=== PATIENT | female | born 1970 | race African-American/Black ===

== ENCOUNTER 2023-03-14 09:53 | Emergency (ER) | payer MEDICAID, OTHER ==
[~2023-03-14] VITALS: Ht 167.6 cm; Wt 82.2 kg
[2023-03-14 10:22] LABS: Basophils # (auto) 0 10 ^3/uL (0-0.2); Basophils % (auto) 0.7 % (0.0-2.0); Eosinophils # (auto) 0.3 10 ^3/uL (0-0.8); Eosinophils % (auto) 5.8 % (0.0-7.0); Hematocrit 38.9 % (36.0-46.0); Hemoglobin 12.9 g/dL (12.2-16.2); Lymphocytes # (auto) 1.8 10 ^3/uL (0.4-5.4); Lymphocytes % (auto) 32.2 % (10.0-50.0); Mean Corpuscular Hemoglobin 27.9 pg (28.0-32.0); Mean Corpuscular Hgb Conc. 33.3 g/dL (32.0-36.0); Mean Corpuscular Volume 83.9 fL (80.0-100.0); Monocytes # (auto) 0.6 10 ^3/uL (0-1.3); Monocytes % (auto) 10.6 % (0.0-12.0); Neutrophils # (auto) 2.9 10 ^3/uL (1.6-8.6); Neutrophils % (auto) 50.7 % (37.0-80.0); Red Blood Cells 4.64 10^6/uL (4.0-5.20); Red Cell Distribution Width 14.1 % (11.8-14.3); White Blood Cell 5.7 10^3/uL (4.4-10.8)
[2023-03-14 10:49] LABS: Alanine Aminotransferase 14 U/L (7-40); Alkaline Phosphatase 92 U/L (46-116); Anion Gap 4 (5-15); Aspartate Aminotransferase 11 U/L (13-40); BUN/Creatinine Ratio 18.8 (10.0-20.0); Blood Urea Nitrogen 15 mg/dL (9-23); Calcium 9.4 mg/dL (8.7-10.4); Carbon Dioxide 28 mmol/L (20-30); Chloride 108 mmol/L (98-107); Glucose 100 mg/dL (74-106); Potassium 4.2 mmol/L (3.5-5.1); Sodium 140 mmol/L (136-145)
[2023-03-14 10:50] LABS: Bilirubin, Total 0.3 mg/dL (0.2-1.0)
[2023-03-14 10:55] LABS: Albumin 4.3 g/dL (3.2-4.8)
[2023-03-14 12:26] VITALS: BP 140/65; TEMP 96.2
[2023-03-14 12:27] VITALS: PULSE 60; RESP 18; O2SAT 98
[2023-03-14 12:38] LABS: Urine Bacteria FEW /hpf (None Seen); Urine Blood Negative /uL (Negative); Urine Clarity Clear (Clear); Urine Color Colorless (Yellow); Urine Protein, UAD Negative (Negative); Urine Specific Gravity 1.015 (1.001-1.035); Urine Urobilinogen Normal (Negative); Urine WBC 1 /hpf (0 - 5); Urine pH 5.5 (5.0-8.0)
== END 2023-03-14 12:30 | disposition home or self-care (01) ==
LOC: ER 09:53
DX: G45.9 Transient cerebral ischemic attack, unspecified (principal); R42 Dizziness and giddiness; F12.10 Cannabis abuse, uncomplicated
CPT/HCPCS: 36415; 70450; 80053; 81001; 85025

== ENCOUNTER 2024-03-30 05:08 | Emergency (ER) | payer MEDICAID ==
[~2024-03-30] VITALS: Ht 167.6 cm; Wt 83.2 kg
[2024-03-30] MEDS ORDERED: HYDR-4902 PO (06:03)
[2024-03-30] MEDS ORDERED: ZOFR4T PO (06:03)
[2024-03-30] MEDS: ONDANSETRON HCL 4 MG/2 ML VIAL IM ONE (06:17)
[2024-03-30] MEDS: fentaNYL CITRATE 100 MCG/2 ML VL IM ONE (06:19)
[2024-03-30 06:20] VITALS: BP 158/82; PULSE 62; PULSE 68; RESP 16; TEMP 97.8; O2SAT 100
== END 2024-03-30 06:35 | disposition home or self-care (01) ==
LOC: ER 05:08
DX: R51.9 Headache, unspecified (principal); I10 Essential (primary) hypertension; F43.9 Reaction to severe stress, unspecified; F12.10 Cannabis abuse, uncomplicated; M19.90 Unspecified osteoarthritis, unspecified site; Z86.73 Personal history of transient ischemic attack (TIA), and cerebral infarction without residual deficits; Z90.49 Acquired absence of other specified parts of digestive tract
CPT/HCPCS: 96372; 99284; J2405; J3010

== ENCOUNTER 2024-04-01 12:07 | Emergency (ER) | payer MEDICAID ==
[~2024-04-01] VITALS: Ht 167.6 cm; Wt 91.0 kg
[~2024-04-01 12:07] MED LIST: HYDR-4902 PO; ZOFR4T PO
[2024-04-01] MEDS: HYDROcodone-ACET 5/325MG TAB PO ONE (14:48)
[2024-04-01] MEDS: ONDANSETRON ODT 4 MG TAB PO ONE (14:48)
[2024-04-01 15:11] VITALS: PULSE 84; RESP 16; O2SAT 98
[2024-04-01 15:20] LABS: Basophils # (auto) 0 10 ^3/uL (0-0.2); Basophils % (auto) 0.5 % (0.0-2.0); Eosinophils # (auto) 0.2 10 ^3/uL (0-0.8); Eosinophils % (auto) 2.9 % (0.0-7.0); Hematocrit 42.5 % (36.0-46.0); Hemoglobin 14.2 g/dL (12.2-16.2); Mean Corpuscular Hemoglobin 28.1 pg (28.0-32.0); Mean Corpuscular Hgb Conc. 33.3 g/dL (32.0-36.0); Mean Corpuscular Volume 84.4 fL (80.0-100.0); Monocytes # (auto) 0.7 10 ^3/uL (0-1.3); Monocytes % (auto) 9.8 % (0.0-12.0); Neutrophils # (auto) 4.3 10 ^3/uL (1.6-8.6); Neutrophils % (auto) 59.8 % (37.0-80.0); Platelet Count (auto) 348 10^3/uL (140-450); Red Blood Cells 5.04 10^6/uL (4.0-5.20); Red Cell Distribution Width 14.5 % (11.8-14.3); White Blood Cell 7.3 10^3/uL (4.4-10.8)
[2024-04-01 15:28] LABS: Anion Gap 6 (5-15); Carbon Dioxide 26 mmol/L (20-31); Chloride 108 mmol/L (98-107); Potassium 3.7 mmol/L (3.5-5.1); Sodium 140 mmol/L (136-145)
[2024-04-01 15:29] LABS: Calcium 10.2 mg/dL (8.7-10.4)
[2024-04-01 15:33] LABS: Glucose 102 mg/dL (74-106)
[2024-04-01 15:34] LABS: BUN/Creatinine Ratio 9.8 (10.0-20.0); Blood Urea Nitrogen 8 mg/dL (9-23)
[2024-04-01 15:50] LABS: Urine Bacteria None Seen /hpf (None Seen)
[2024-04-01 16:09] LABS: Urine Blood Negative /uL (Negative); Urine Clarity Clear (Clear); Urine Color Light-Yellow (Yellow); Urine Protein, UAD Negative (Negative); Urine Specific Gravity 1.015 (1.001-1.035); Urine Urobilinogen Normal (Negative); Urine WBC 3 /hpf (0 - 5); Urine pH 6.5 (5.0-9.0)
[2024-04-01] MEDS ORDERED: HYDR-4902 PO (16:51)
[2024-04-01] MEDS ORDERED: AML5T PO (16:51)
[2024-04-01] MEDS: ALPRAZolam 0.25 MG TAB PO ONE (17:19)
[2024-04-01 17:20] VITALS: BP 129/77; PULSE 80; RESP 18; O2SAT 99
== END 2024-04-01 17:20 | disposition home or self-care (01) ==
LOC: ER 12:15
DX: R51.9 Headache, unspecified (principal); I10 Essential (primary) hypertension; F12.10 Cannabis abuse, uncomplicated; Z86.73 Personal history of transient ischemic attack (TIA), and cerebral infarction without residual deficits; Z90.49 Acquired absence of other specified parts of digestive tract
CPT/HCPCS: 36415; 80048; 81001; 85025; 99284; Q0162